=== PATIENT | male | born 1970 | race Caucasian/White ===

== ENCOUNTER 2018-05-14 11:12 | Emergency (ER) | payer MEDICAID ==
--- NOTE | 2018-05-14 11:39 | EDM.PDOCBH ---
ED HPI GENERAL MEDICAL PROBLEM - General Chief Complaint: Behavioral/Psych Stated Complaint: MENTAL ISSUES Time Seen by Provider: 05/14/18 11:12 Source of Information: Reports: Patient History Limitations: Reports: No Limitations - History of Present Illness INITIAL COMMENTS - FREE TEXT/NARRATIVE: History of present illness: []Patient has history of bipolar disorder has been off his meds for several months. The last 4 days he's been having suicidal thoughts, feeling hopeless and has lost all interest in daily activities. Patient has no specific plan and has not attempted to harm himself at this point. Review of systems: As per history of present illness and below otherwise all systems reviewed and negative. Past medical history: As per history of present illness and as reviewed below otherwise noncontributory. Surgical history: As per history of present illness and as reviewed below otherwise noncontributory. Social history: No reported history of drug or alcohol abuse. Family history: As per history of present illness and as reviewed below otherwise noncontributory. Physical exam: General: Well developed, well nourished in NAD HEENT: Atraumatic, normocephalic, pupils reactive, negative for conjunctival pallor or scleral icterus, mucous membranes moist, throat clear, neck supple, nontender, trachea midline. Lungs: Clear to auscultation, breath sounds equal bilaterally, chest nontender. Heart: S1S2, regular, negative for clicks, rubs, or JVD. Abdomen: Soft, nondistended, nontender. Negative for masses or hepatosplenomegaly. Negative for costovertebral tenderness. Pelvis: Stable nontender. Genitourinary: Deferred. Rectal: Deferred. Extremities: Atraumatic, negative for cords or calf pain. Neurovascular unremarkable. Neuro: Awake, alert, oriented. Cranial nerves II through XII unremarkable. Cerebellum unremarkable. Motor and sensory unremarkable throughout. Exam nonfocal. Diagnostics: []Mental health workup including CBC which was normal chemistry which is normal tox screen negative alcohol level negative thyroid screen negative Therapeutics: [] Impression: []Bipolar disorder with suicidal ideation Plan: []Patient placed on hold as being transported to Dr. Nash, psychiatrist in [facility]. Definitive disposition and diagnosis as appropriate pending reevaluation and review of above. - Related Data Allergies Allergy/AdvReac Type Severity Reaction Status Date / Time sulfamethoxazole Allergy Itching Verified 05/14/18 11:15 [From Bactrim] trimethoprim [From Bactrim] Allergy Itching Verified 05/14/18 11:15 Home Meds: Home Meds Emtricitabine/Tenofovir [Truvada 100 mg-150 mg Tablet] 1 tab PO DAILY 05/14/18 [ History] Past Medical History HEENT History: Reports: None Cardiovascular History: Reports: None Respiratory History: Reports: None Gastrointestinal History: Reports: None Genitourinary History: Reports: None Musculoskeletal History: Reports: Other (See Below) Other Musculoskeletal History: Spinabifida Neurological History: Reports: None Psychiatric History: Reports: None Endocrine/Metabolic History: Reports: None Hematologic History: Reports: Anesthesia Reaction Immunologic History: Reports: HIV Oncologic (Cancer) History: Reports: None Dermatologic History: Reports: None - Infectious Disease History Infectious Disease History: Reports: Chicken Pox, HIV-Human Immunodeficiency Virus - Past Surgical History Head Surgeries/Procedures: Reports: None HEENT Surgical History: Reports: None Cardiovascular Surgical History: Reports: None Respiratory Surgical History: Reports: None GI Surgical History: Reports: Cholecystectomy Male Surgical History: Reports: None Neurological Surgical History: Reports: None Musculoskeletal Surgical History: Reports: None Oncologic Surgical History: Reports: None Dermatological Surgical History: Reports: None Social & Family History - Family History Family Medical History: Noncontributory - Tobacco Use Smoking Status *Q: Current Every Day Smoker Years of Tobacco use: 35 Packs/Tins Daily: 2.5 - Caffeine Use Caffeine Use: Reports: Coffee - Recreational Drug Use Recreational Drug Use: Yes Recreational Drug Type: Reports: Marijuana/Hashish Recreational Drug Use Frequency: Not Used In Over 2 Months ED ROS GENERAL - Review of Systems Review Of Systems: See Below (See history of present illness) ED EXAM, BEHAVIORAL HEALTH - Physical Exam Exam: See Below (See history of present illness) COURSE, BEHAVIORAL HEALTH COMP - Course Vital Signs: Last Vital Signs Temp 98.5 F 05/14/18 11:16 Pulse 91 05/14/18 11:16 Resp 18 05/14/18 11:16 BP 125/73 05/14/18 11:16 Pulse Ox 98 05/14/18 11:16 Orders, Labs, Meds: Active Orders 24 hr Category Date Time Status EKG Documentation Completion [RC] STAT Care 05/14/18 11:29 Active DRUG SCREEN, URINE [URCHEM] Stat Lab 05/14/18 12:18 Ordered Nicotine [Habitrol] Med 05/15/18 09:00 Active 7 mg TRDERM DAILY Medication Orders Nicotine (Habitrol) 7 mg TRDERM DAILY [facility] Laboratory Tests 05/14/18 05/14/18 05/14/18 Range/Units 11:45 11:45 12:18 WBC 3.96 L (4.0-11.0) K/uL RBC 4.88 (4.50-5.90) M/uL Hgb 15.2 (13.0-17.0) g/dL Hct 44.0 (38.0-50.0) % MCV 90.2 (80.0-98.0) fL MCH 31.1 (27.0-32.0) pg MCHC 34.5 (31.0-37.0) g/dL RDW Std Deviation 44.5 (28.0-62.0) fl RDW Coeff of Des 14 (11.0-15.0) % Plt Count 137 L (150-400) K/uL MPV 9.90 (7.40-12.00) fL Neut % (Auto) 60.0 (48.0-80.0) % Lymph % (Auto) 31.8 (16.0-40.0) % [place] % (Auto) 6.6 (0.0-15.0) % Eos % (Auto) 1.3 (0.0-7.0) % Baso % (Auto) 0.3 (0.0-1.5) % Neut # (Auto) 2.4 (1.4-5.7) K/uL Lymph # (Auto) 1.3 (0.6-2.4) K/uL [place] # (Auto) 0.3 (0.0-0.8) K/uL Eos # (Auto) 0.1 (0.0-0.7) K/uL Baso # (Auto) 0.0 (0.0-0.1) K/uL Nucleated RBC % 0.0 /100WBC Nucleated RBCs # 0 K/uL Sodium 144 (136-148) mmol/L Potassium 4.1 (3.5-5.1) mmol/L Chloride 107 (98-107) mmol/L Carbon Dioxide 26.6 (21.0-32.0) mmol/L BUN 9 (7.0-18.0) mg/dL Creatinine 1.3 (0.8-1.3) mg/dL Est Cr Clr Drug Dosing 81.67 mL/min Estimated GFR (MDRD) 59.2 ml/min Glucose 98 (74-106) mg/dL Calcium 8.6 (8.5-10.1) mg/dL Magnesium 1.8 (1.8-2.4) mg/dL Total Bilirubin 0.7 (0.2-1.0) mg/dL AST 24 (15-37) IU/L ALT 31 (14-63) IU/L Alkaline Phosphatase 57 (46-116) U/L Total Protein 6.9 (6.4-8.2) g/dL Albumin 4.0 (3.4-5.0) g/dL Globulin 2.9 (2.0-3.5) g/dL Albumin/Globulin Ratio 1.4 (1.3-2.8) TSH 3rd Generation 1.66 (0.36-3.74) uIU/mL Salicylates 4.2 (0-20) mg/dL Urine Opiates Screen NEGATIVE (NEGATIVE) Ur Oxycodone Screen NEGATIVE (NEGATIVE) Urine Methadone Screen NEGATIVE (NEGATIVE) Acetaminophen 0.0 ug/mL Ur Barbiturates Screen NEGATIVE (NEGATIVE) Ur Phencyclidine Scrn NEGATIVE (NEGATIVE) Ur Amphetamine Screen NEGATIVE (NEGATIVE) U Methamphetamines Scrn NEGATIVE (NEGATIVE) U Benzodiazepines Scrn NEGATIVE (NEGATIVE) U Cocaine Metab Screen NEGATIVE (NEGATIVE) U Marijuana (THC) Screen NEGATIVE (NEGATIVE) Ethyl Alcohol < 3.0 mg/dL Medications Generic Name Dose Route Start Last Admin Trade Name Freq PRN Reason Stop Dose Admin Nicotine 7 mg 05/15/18 09:00 Habitrol TRDERM DAILY [facility] Departure - Departure Time of Disposition: 13:13 Disposition: DC/Tfer to Psych Hosp/Unit [facility] Condition: Good Clinical Impression: Suicidal ideation - Discharge Information Forms: ED Department Discharge - My Orders Last 24 Hours: My Active Orders 05/14/18 11:29 EKG Documentation Completion [RC] STAT 05/14/18 12:18 DRUG SCREEN, URINE [URCHEM] Stat 05/15/18 09:00 Nicotine [Habitrol] 7 mg TRDERM DAILY - Assessment/Plan Last 24 Hours: My Active Orders 05/14/18 11:29 EKG Documentation Completion [RC] STAT 05/14/18 12:18 DRUG SCREEN, URINE [URCHEM] Stat 05/15/18 09:00 Nicotine [Habitrol] 7 mg TRDERM DAILY
[2018-05-14 12:42] LABS: CHLORIDE,CL 107 mmol/L (98-107); SODIUM,NA 144 mmol/L (136-148)
[2018-05-14] MEDS ORDERED: Nicotine 14 MG/24 Hr Patch ONE (13:22)
[2018-05-14] MEDS: Nicotine 14 MG/24 Hr Patch TRDERM ONE ×2 (13:42→13:57)
[2018-05-15] MEDS ORDERED: Nicotine 7 MG/24 Hr Patch TRDERM SCH (09:00)
== END 2018-05-14 13:49 ==
LOC: MW.ED 11:12
DX: R45.851 Suicidal ideations (principal); F31.9 Bipolar disorder, unspecified; F17.210 Nicotine dependence, cigarettes, uncomplicated; Z88.2 Allergy status to sulfonamides; Z88.1 Allergy status to other antibiotic agents; Z79.899 Other long term (current) drug therapy; Z21 Asymptomatic human immunodeficiency virus [HIV] infection status
CPT/HCPCS: 36415; 80053; 80305; 83735; 84443; 85025; 93005; 99285; G0480; A9270-GY